=== PATIENT | male | born 1990 ===

== ENCOUNTER 2016-12-29 21:55 | Emergency (ER) | payer MEDICAID | END 2016-12-29 23:26 | disposition home or self-care (01) | LOC: D.ER 21:55 | DX: S61.210A Laceration without foreign body of right index finger without damage to nail, initial encounter (principal); W25.XXXA Contact with sharp glass, initial encounter; Y93.89 Activity, other specified; Y92.89 Other specified places as the place of occurrence of the external cause; F17.200 Nicotine dependence, unspecified, uncomplicated ==